=== PATIENT | male | born 1960 | race Caucasian/White ===

== ENCOUNTER 2025-08-29 08:51 | Emergency (ER) | payer OTHER ==
[~2025-08-29] VITALS: Ht 188 cm; Wt 88.5 kg
[2025-08-29] MEDS ORDERED: ACETAMINOPHEN 325 MG TABLET ONE (09:37)
[2025-08-29] MEDS ORDERED: TDAP [DIPH/PERTUSSIS/TET] 0.5 ML VIAL IM ONE (09:37)
[2025-08-29] MEDS: ACETAMINOPHEN 325 MG TABLET PO ONE (09:48)
[2025-08-29] MEDS: TDAP [DIPH/PERTUSSIS/TET] 0.5 ML VIAL IM ONE (09:56)
[2025-08-29 10:10] LABS: PLATELET COUNT (AUTO) 253 K/uL (150-450); RED BLOOD CELL COUNT(AUTO) 4.23 MIL/uL (4.5-6.0); RED CELL DISTRIBUTION WIDTH 12.9 % (11.5-15.0); WHITE BLOOD COUNT (AUTO) 7.8 K/uL (4.3-11.0)
[2025-08-29 10:21] LABS: CALCIUM, SERUM 9.4 mg/dL (8.5-10.1); CREATININE 1.1 mg/dL (0.6-1.3); SODIUM SERUM 144 mmol/L (136-145); UREA NITROGEN, BLOOD 13 mg/dL (7-18)
[2025-08-29 10:28] LABS: ASPARTATE AMINOTRANSFERASE 20 U/L (15-37); TOTAL PROTEIN, SERUM 7.7 g/dL (6.4-8.2)
[2025-08-29] MEDS: LIDOCAINE 1% INJ 50 ML MDV IJ ONE (11:40)
[2025-08-29] MEDS ORDERED: AMOX-430 PO (12:54)
[2025-08-29] MEDS ORDERED: AMOX/CLAVULANATE 875 MG TABLET ONE (12:59)
[2025-08-29] MEDS: AMOX/CLAVULANATE 875 MG TABLET PO ONE (13:06)
[2025-08-29 13:07] VITALS: BP 148/82; TEMP 98; O2SAT 98
== END 2025-08-29 13:08 | disposition home or self-care (01) ==
LOC: ER 08:54
DX: S01.81XA Laceration without foreign body of other part of head, initial encounter (principal); I11.9 Hypertensive heart disease without heart failure; E78.5 Hyperlipidemia, unspecified; Z88.8 Allergy status to other drugs, medicaments and biological substances; W19.XXXA Unspecified fall, initial encounter; Y93.89 Activity, other specified; Y92.89 Other specified places as the place of occurrence of the external cause; Y99.8 Other external cause status
CPT/HCPCS: 36415; 70450-TC; 70486-TC; 80048-TC; 80076-TC; 84484-TC; 85025-TC; 90715